=== PATIENT | female | born 1980 ===

== ENCOUNTER 2016-12-07 17:53 | Emergency (ER) | payer MEDICARE, MEDICAID ==
[2016-12-07 18:08] VITALS: BP 117/61; PULSE 65; RESP 16; TEMP 98.3
[2016-12-07] MEDS ORDERED: Sodium Chloride 0.9% 500 ML IV STA (19:57)
--- NOTE | 2016-12-07 20:13 | ED PDOC ---
HPI: Chest Pain Time Seen by Provider: 12/07/16 19:45 Chief Complaint (Nursing): Chest Pain Chief Complaint (Provider): Chest Pain History Per: Patient History/Exam Limitations: no limitations Onset/Duration Of Symptoms: Days (3-4 days) Current Symptoms Are (Timing): Still Present Additional Complaint(s): 36 y/o female presents to the emergency department with a complaint of chest constant chest pain x3-4days. Associated with bilateral rib pain x6-7 months. Reports taking Motrin for the past several days for the relief of symptoms. Denies vision changes, cough, congestion, dyspnea, runny nose, leg pain, fever, recent travel, or use of contraceptives. Fell 2 months ago and had gone to to ER x2 for eval. Of note, patient visited [facility] and [facility] for similar complaints. Past Medical History Reviewed: Historical Data, Nursing Documentation, Vital Signs Vital Signs: Last Vital Signs Temp 98.3 F 12/07/16 18:06 Pulse 65 12/07/16 18:06 Resp 16 12/07/16 18:06 BP 117/61 12/07/16 18:06 Pulse Ox 98 12/07/16 20:19 - Medical History PMH: Asthma Denies: Chronic Kidney Disease - Surgical History Surgical History: Cholecystectomy - Family History Family History: States: Unknown Family Hx - Living Arrangements Living Arrangements: With Family - Social History Current smoker - smoking cessation education provided: No Alcohol: Social Drugs: Denies - Immunization History Hx Tetanus Toxoid Vaccination: Yes Hx Influenza Vaccination: Yes Hx Pneumococcal Vaccination: Yes - Home Medications Home Medications: Ambulatory Orders Medication Instructions Recorded No Known Home Med 10/29/16 - Allergies Allergies/Adverse Reactions: Allergies Allergy/AdvReac Type Severity Reaction Status Date / Time No Known Allergies Allergy Verified 10/29/16 15:14 Review of Systems ROS Statement: Except As Marked, All Systems Reviewed And Found Negative Constitutional: Negative for: Fever, Other (Fall, recent travel or use of contraceptives) Eyes: Negative for: Vision Change ENT: Negative for: Nose Discharge, Nose Congestion Cardiovascular: Positive for: Chest Pain Respiratory: Negative for: Cough Musculoskeletal: Positive for: Other (Rib pain bilaterally). Negative for: Leg Pain Physical Exam - Reviewed Nursing Documentation Reviewed: Yes Vital Signs Reviewed: Yes - Physical Exam Appears: Positive for: Non-toxic, No Acute Distress Head Exam: Positive for: ATRAUMATIC, NORMAL INSPECTION, NORMOCEPHALIC Skin: Positive for: Normal Color, Warm, Dry Eye Exam: Positive for: Normal appearance ENT: Positive for: Normal ENT Inspection. Negative for: Pharyngeal Erythema Neck: Positive for: Normal, Supple Cardiovascular/Chest: Positive for: Regular Rate, Rhythm, Other (Mild chest tenderness with lateral tenderness to the lower ribs bilaterally). Negative for : Chest Non Tender, Murmur Respiratory: Positive for: Normal Breath Sounds. Negative for: Accessory Muscle Use, Respiratory Distress Gastrointestinal/Abdominal: Positive for: Normal Exam, Soft. Negative for: Tenderness Back: Positive for: Normal Inspection. Negative for: L CVA Tenderness, R CVA Tenderness Extremity: Positive for: Normal ROM. Negative for: Pedal Edema Neurologic/Psych: Positive for: Alert, Oriented - Laboratory Results Result Diagrams: 12/07/16 20:20 12/07/16 20:20 Interpretation Of Abn Labs: no acute - ECG ECG: Positive for: Interpreted By Me, Viewed By Me ECG Rhythm: Positive for: Sinus Rhythm, Right Bundle Branch Block (incomplete) O2 Sat by Pulse Oximetry: 98 (RA) Pulse Ox Interpretation: Normal - Radiology X-Ray: Interpreted by Me, Viewed By Me X-Ray Interpretation: No Acute Disease - Progress ED Course And Treament: 938: Stable. AAOx3. Pain free. Tolerated PO. Fu with pcp. Medical Decision Making Medical Decision Making: Time: 19:57 Initial impression: Chest pain Initial plan: --EKG --COMP metabolic panel --Troponin I --Urine Preg --CBC w/ diff --Chest Two Views (RAD) --Toradol 15 mg IV --Sodium Chloride 500 ml IV 100 mls/hr --Reevaluation Scribe Attestation: Documented by Nicol Guzman, acting as a scribe for Jae Palmer MD. Provider Scribe Attestation: All medical record entries made by the Scribe were at my direction and personally dictated by me. I have reviewed the chart and agree that the record accurately reflects my personal performance of the history, physical exam, medical decision making, and the department course for this patient. I have also personally directed, reviewed, and agree with the discharge instructions and disposition. Disposition - Clinical Impression Clinical Impression: Chest pain - Patient ED Disposition Is Patient to be Admitted: No Counseled Patient/Family Regarding: Studies Performed, Diagnosis, Need For Followup - Disposition Referrals: formerly [facility] [Outside] - 12/08/16 Disposition: Routine/Home Disposition Time: 21:39 Condition: STABLE Additional Instructions: Return if not better in 3 days. Instructions: Chest Pain (ED)
[2016-12-07 20:15] VITALS: O2SAT 98
[2016-12-07 20:23] LABS: BASO # 0.1 K/uL (0.0-0.2); EOS # 0.3 K/uL (0.0-0.7); EOS % 4.2 % (0.0-4.0); HEMOGLOBIN 12.5 g/dL (12.0-16.0); LYMPH # 2.5 K/uL (1.0-4.3); LYMPH % 33.2 % (20.0-40.0); MEAN CELL VOLUME 86.1 fl (81.0-99.0); MEAN CORPUSCULAR HEMOGLOBIN 28.1 pg (27.0-31.0); MEAN CORPUSCULAR HGB CONC 32.6 g/dL (33.0-37.0); MEAN PLATELET VOLUME 8.9 fl (7.2-11.7); MONO # 0.5 K/uL (0.0-0.8); MONO % 6.8 % (0.0-10.0); NEUT # 4.2 K/uL (1.8-7.0); NEUT % 54.8 % (50.0-75.0); RBC 4.44 Mil/uL (3.80-5.20); RED CELL DISTRIBUTION WIDTH 13.5 % (11.5-14.5); WHITE BLOOD COUNT 7.6 K/uL (4.8-10.8)
[2016-12-07 20:46] LABS: ALB/GLOB RATIO 1.4 (1.0-2.1); ALBUMIN 4.2 g/dL (3.5-5.0); ALT/SGPT 50 U/L (9-52); AST/SGOT 29 U/L (14-36); BLOOD UREA NITROGEN 19 mg/dl (7-17); CALCIUM 9.2 mg/dL (8.4-10.2); GFR AFRICAN-AMERICAN > 60; GFR NON-AFRICAN AMERICAN > 60
--- NOTE | 2016-12-08 11:45 | RAD ---
HISTORY: pain COMPARISON: No prior. TECHNIQUE: Chest PA and lateral FINDINGS: LUNGS: No active pulmonary disease. PLEURA: No significant pleural effusion identified. No pneumothorax apparent. CARDIOVASCULAR: Normal. OSSEOUS STRUCTURES: No significant abnormalities. VISUALIZED UPPER ABDOMEN: Normal. OTHER FINDINGS: None. IMPRESSION: No active disease.
--- NOTE | 2016-12-08 23:37 | CARD ---
APPROVED REPORT EKG Measurement Heart [id number] <Conclusion> Normal sinus rhythm Incomplete right bundle branch block Borderline ECG
== END 2016-12-07 21:43 | disposition home or self-care (01) ==
LOC: H.ER 17:53
DX: R07.89 Other chest pain (principal); J45.909 Unspecified asthma, uncomplicated
CPT/HCPCS: 71020; 80053; 81025; 84484; 85025; 93005; 96361; 96374; 99283; J1885; J7040